=== PATIENT | female | born 1935 | race Caucasian/White ===

== ENCOUNTER 2016-12-23 06:15 | Inpatient (IN) | payer MEDICARE, OTHER ==
--- NOTE | 2016-12-20 16:51 | HP ---
HISTORY OF PRESENT ILLNESS: This is an 81-year-old female, who recently underwent a right carotid e ndarterectomy for bilateral critical carotid artery stenosis. As mentioned, the patient had no symp toms and was picked up on routine evaluation. She has a history of palpitations with an implanted m onitoring device and has been tried on antiarrhythmics, but could not tolerate these. She has a his tory of hypertension and diabetes mellitus, although currently her diabetes is controlled with diet alone after weight loss. She has chronic renal insufficiency, gastroesophageal reflux, dyslipidemia , diabetes mellitus, diverticulosis and hypertension. PAST SURGICAL HISTORY: Includes the previously noted right carotid endarterectomy this year. She h as also had a [employer] implant in 2013, bilateral cataracts, cholecystectomy, hysterectomy, FAMILY HISTORY: Parents are . SOCIAL HISTORY: The patient is a nonsmoker. She does not exercise regularly, but does stands on nights. She has a significant other who she is known since she was a teenager. REVIEW OF SYSTEMS: Significant only for some fluid accumulation in her lower extremities. MEDICATIONS: Include pravastatin 40, amlodipine 10, aspirin 325, losartan 50, Prilosec 20, Dyazide 37.5/25 daily, metoprolol ER 25 daily, vitamin D supplements. ALLERGIES: SULFA. PLAN: Plan at this time is for elective left carotid endarterectomy on 12/23/2016.
[2016-12-23] MEDS ORDERED: Protamine Sulfate 50 MG/5 ML VIAL ONE (06:28)
[2016-12-23] MEDS ORDERED: Heparin 5,000 UNITS/ML VIAL ONE (06:28)
[2016-12-23] MEDS ORDERED: Fentanyl 100 MCG/2 ML VIAL ONE ×2 (06:46→09:55)
[2016-12-23] MEDS ORDERED: Midazolam HCl 2 mg/2 ml Vial ONE (06:46)
[2016-12-23 07:03] LABS: Hematocrit 38.5 % (36.0-47.0); Mean Platelet Volume 7.6 fL (7.4-10.4); Red Blood Cell (RBC) Count 3.77 mill/uL (4.20-5.40); White Blood Cell (WBC) Count 6.8 thou/uL (4.8-10.8)
[2016-12-23] MEDS ORDERED: Lidocaine 2% PF 10 ML AMP (For Epidural Use) ONE (07:30)
[2016-12-23] MEDS ORDERED: ePHEDrine/0.9% NaCl/PF SYRINGE 50 mg/10 ml ONE (07:30)
[2016-12-23] MEDS ORDERED: Glycopyrrolate 0.2 MG/ML 5 ML SYRINGE ONE (07:30)
[2016-12-23] MEDS ORDERED: Propofol 200 MG/20 ML VIAL ONE (07:30)
[2016-12-23] MEDS ORDERED: Ondansetron HCl/PF 4 MG/2 ML Vial ONE (07:30)
[2016-12-23 07:39] LABS: Anion Gap 15 mmol/L (10-20); BUN (Urea Nitrogen) 31 mg/dL (9.8-20.1); Calc. Creatinine Clearance 24 mL/min (70-130); Calcium 9.8 mg/dL (7.8-10.44); Carbon Dioxide 24 mmol/L (23-31); Chloride 102 mmol/L (98-107); Estimated GFR-MDRD 25
[2016-12-23] MEDS ORDERED: Promethazine HCl 25 MG/ML VIAL IM PRN (08:05)
[2016-12-23] MEDS ORDERED: Ondansetron HCl/PF 4 MG/2 ML Vial IVP PRN ×2 (08:05→12:17)
[2016-12-23] MEDS ORDERED: Promethazine HCl 25 MG/ML VIAL SLOW IVP PRN (08:05)
--- NOTE | 2016-12-23 09:25 | OP ---
POSTOPERATIVE DIAGNOSIS: Left carotid stenosis. PROCEDURE: Left carotid endarterectomy. DESCRIPTION OF THE PROCEDURE: After adequate anesthesia had been obtained, a right common femoral a rterial 5 Lao catheter was placed without difficulty. She was then prepped and draped after ultr asound had been used on the neck. Incision was made and carried down exposing the common internal a nd external carotid arteries. Vagus nerve was identified and avoided. Hypoglossal nerve was not vi sualized. After 7500 units of heparin, clamps were applied, arteriotomy performed, and a 12-Lao shunt was placed. Endarterectomy was then performed with satisfactory tapering distally. Area was thoroughly irrigated and a bovine patch was used to close the arteriotomy. Back flushing and forwar d flushing the vessels after shunt removal and then irrigating again with heparin saline. Flow was then restored up the external and then internal carotid artery. Suture was then secured, following which, protamine was given to partially reverse the heparin and after obtaining good hemostasis, the wound was irrigated and closed in layers.
[2016-12-23 11:31] VITALS: BMI 25.3
[2016-12-23] MEDS ORDERED: Fentanyl 100 MCG/2 ML VIAL SLOW IVP PRN ×2 (12:17)
[2016-12-23] MEDS ORDERED: Nitroglycerin 50 MG/250 ML BOT 250 ML IVPB PRN (12:17)
[2016-12-23] MEDS ORDERED: DOPamine 400 MG/D5W 250 ML 250 ML IVPB PRN (12:17)
[2016-12-23] MEDS ORDERED: Insulin Regular 300 UNITS/3 ML VIAL SC PRN (12:17)
[2016-12-23] MEDS ORDERED: Acetaminophen 325 MG TAB PO PRN (12:17)
[2016-12-23] MEDS ORDERED: HYDROcodone/Acetaminophen 5/325 mg Tablet PO PRN (12:17)
[2016-12-23] MEDS: Sodium Chloride 0.9% 1,000 ML IV SCH (12:30)
[2016-12-23] MEDS: HYDROcodone/Acetaminophen 5/325 mg Tablet PO PRN ×2 (12:43→18:22)
[2016-12-23] MEDS ORDERED: Pravastatin Sodium 40 MG TAB PO SCH (21:00)
[2016-12-24] MEDS: HYDROcodone/Acetaminophen 5/325 mg Tablet PO PRN ×2 (01:32→09:40)
[2016-12-24 07:32] VITALS: TEMP 98
[2016-12-24] MEDS: Sodium Chloride 0.9% 1,000 ML IV SCH (08:24)
[2016-12-24 08:30] VITALS: BP 98/43
[2016-12-24] MEDS ORDERED: Losartan Potassium 25 MG TAB PO SCH (09:00)
--- NOTE | 2016-12-24 12:06 | DIS ---
HOSPITAL COURSE: The patient was admitted on 12/23/2016, where she underwent left carotid endartere ctomy. Her postoperative course was notable only for blood pressure about 100. Neurologic exam was normal. She will be discharged home with instructions to stop her amlodipine as well as her diuretic. Her admission creatinine was about 2 and for this reason, I will stop her di uretic. We will follow up in 2 to 3 weeks.
== END 2016-12-24 10:35 | disposition home or self-care (01) | DRG 27 ==
LOC: SURG A 06:15 → CCU 11:25
PROVIDERS: ADMIT Thoracic Surgery (Cardiothoracic Vascular Surgery); ATTEND Thoracic Surgery (Cardiothoracic Vascular Surgery)
PROC: 03CJ3ZZ Extirpation of Matter from Left Common Carotid Artery, Percutaneous Approach (ICD-10-PCS; principal; 2016-12-24)
PROC: 03U Upper Arteries, Supplement (ICD-10-PCS; 2016-12-24)
DX: I65.22 Occlusion and stenosis of left carotid artery (principal); E11.9 Type 2 diabetes mellitus without complications; I12.9 Hypertensive chronic kidney disease with stage 1 through stage 4 chronic kidney disease, or unspecified chronic kidney disease; E78.5 Hyperlipidemia, unspecified; K21.9 Gastro-esophageal reflux disease without esophagitis; K57.90 Diverticulosis of intestine, part unspecified, without perforation or abscess without bleeding; N18.9 Chronic kidney disease, unspecified; Z88.2 Allergy status to sulfonamides; Z88.8 Allergy status to other drugs, medicaments and biological substances
CPT/HCPCS: 36415; 36416; 80048; 85027; 96374; J1642; J1644; J2001; J2250; J2405; J2704; J2720; J3010

== ENCOUNTER 2017-03-09 10:32 | Emergency (ER) | payer MEDICARE, OTHER ==
[2017-03-09] MEDS ORDERED: Metoclopramide HCl 10 MG/2 ML VIAL ONE (11:17)
[2017-03-09] MEDS ORDERED: diphenhydrAMINE 50 MG/ML VIAL ONE (11:17)
== END 2017-03-09 12:02 | disposition home or self-care (01) ==
LOC: ERS 10:32
DX: B02.9 Zoster without complications (principal); E78.5 Hyperlipidemia, unspecified; I10 Essential (primary) hypertension; E11.9 Type 2 diabetes mellitus without complications
CPT/HCPCS: 96374; 96375; J1200; J2765

== ENCOUNTER 2017-04-26 13:00 | Outpatient (CLI) | payer MEDICARE, OTHER ==
--- NOTE | 2017-04-26 21:05 | EKG ---
Test Reason : Blood Pressure : / mmHG Vent. Rate : 073 BPM Atrial Rate : 073 BPM P-R Int : 150 ms QRS Dur : 088 ms QT Int : 388 ms P-R-T Axes : 075 -37 -08 degrees QTc Int : 427 ms Normal sinus rhythm Left axis deviation Nonspecific ST abnormality Abnormal ECG When compared with ECG of 30-OCT-2016 17:03, Premature atrial complexes are no longer Present T wave inversion now evident in Inferior leads Confirmed by MALIK MOORE ([id number]) on 04/26/2017 9:04:55 PM Referred By: DAVIS Confirmed By:MALIK MOORE
== END 2017-04-26 13:01 | disposition home or self-care (01) ==
LOC: LABBT 13:00
PROVIDERS: ATTEND Internal Medicine Cardiovascular Disease
DX: Z01.818 Encounter for other preprocedural examination (principal); R55 Syncope and collapse
CPT/HCPCS: 93005; 93010

== ENCOUNTER 2017-04-28 10:19 | Day surgery (SDC) | payer MEDICARE, OTHER ==
[2017-04-26 13:28] VITALS: BMI 24.3
[2017-04-28] MEDS ORDERED: Sodium Chloride 0.9% 10 ML ONE (10:25)
[2017-04-28] MEDS ORDERED: Lidocaine 1% w/Epinephrine 1:200K 30 ML VIAL ONE (12:33)
--- NOTE | 2017-04-28 14:24 | OP ---
DATE OF PROCEDURE: 04/28/2017 LOOP RECORDER EXPLANTATION REPORT HISTORY: Ms. Wilkes had a loop recorder implanted originally for presyncope, but had no recurrence. She had some asymptomatic atrial tachycardia only. Her device is at end of service and she wishes to be removed. DESCRIPTION OF PROCEDURE: The patient received local analgesia with subcutaneous lidocaine at the de vice insertion site after adequate prepping and draping. The incision was made over the previous sca r and the device was extracted. The wound was closed with Dermabond. CONCLUSION: Successful loop recorder explantation.
== END 2017-04-28 13:50 | disposition home or self-care (01) ==
LOC: CCL 10:19
PROVIDERS: ATTEND Internal Medicine Cardiovascular Disease
PROC: 0JPT32Z Removal of Monitoring Device from Trunk Subcutaneous Tissue and Fascia, Percutaneous Approach (ICD-10-PCS; principal; 2017-04-28)
DX: Z45.89 Encounter for adjustment and management of other implanted devices (principal); R00.0 Tachycardia, unspecified; E11.22 Type 2 diabetes mellitus with diabetic chronic kidney disease; I12.9 Hypertensive chronic kidney disease with stage 1 through stage 4 chronic kidney disease, or unspecified chronic kidney disease; N18.9 Chronic kidney disease, unspecified; K21.9 Gastro-esophageal reflux disease without esophagitis; E78.5 Hyperlipidemia, unspecified; Z79.82 Long term (current) use of aspirin; Z79.899 Other long term (current) drug therapy; Z88.2 Allergy status to sulfonamides; Z88.8 Allergy status to other drugs, medicaments and biological substances; Z95.818 Presence of other cardiac implants and grafts; Z90.49 Acquired absence of other specified parts of digestive tract; Z90.710 Acquired absence of both cervix and uterus; Z98.41 Cataract extraction status, right eye; Z98.42 Cataract extraction status, left eye; Z98.890 Other specified postprocedural states
CPT/HCPCS: 33284; A4216

== ENCOUNTER 2018-10-17 23:24 | Emergency (ER) | payer MEDICARE, OTHER ==
[2018-10-18 00:14] LABS: #Basophils 0.1 thou/uL (0.0-0.2); #Eosinphils 0.4 thou/uL (0.0-0.7); #Lymphocytes 3.3 thou/uL (1.20-3.40); #Neutrophils 3.2 thou/uL (1.40-6.50); %Eosinophils 5.3 % (0.0-10.0); %Lymphocytes 41.1 % (21.0-51.0); %Monocytes 12.5 % (0.0-10.0); %Neutrophils 40.1 % (42.0-75.0); Hemoglobin 12.3 g/dL (12.0-16.0); Mean Corpuscular HGB CONC 33.4 g/dL (32.0-36.0); Mean Corpuscular Hemoglobin 33.5 pg (27.0-31.0); Mean Platelet Volume 7.4 fL (7.4-10.4); Platelet Count 235 thou/uL (130-400); RBC Distribution Width 12.3 % (11.5-14.5); Red Blood Cell (RBC) Count 3.67 mill/uL (4.20-5.40)
[2018-10-18 00:19] LABS: Bilirubin Negative (Negative); Blood, Urine Negative (Negative); Clarity Clear (Clear); Glucose, Urine (Dipstick) Normal (Negative); Leukocyte Negative Leu/uL (Negative); Nitrite Negative (Negative); Protein, Urine (Dipstick) Negative (Neg-Trace); Urobilinogen Normal mg/dL (Less than 2)
[2018-10-18 00:35] LABS: ALT (SGPT) 7 U/L (8-55); AST (SGOT) 15 U/L (5-34); Albumin 3.9 g/dL (3.4-4.8); Alkaline Phosphatase 98 U/L (40-150); Anion Gap 13 mmol/L (10-20); BUN (Urea Nitrogen) 16 mg/dL (9.8-20.1); Bilirubin, Total 0.6 mg/dL (0.2-1.2); Calc. Creatinine Clearance 0 mL/min (70-130); Calcium 9.4 mg/dL (7.8-10.44); Carbon Dioxide 25 mmol/L (23-31); Chloride 105 mmol/L (98-107); Estimated GFR-MDRD 39; Globulin 3.3 g/dL (2.4-3.5); Glucose 119 mg/dL (83-110); Protein, Total 7.2 g/dL (6.0-8.3); Sodium 139 mmol/L (136-145)
[2018-10-18] MEDS ORDERED: Acetaminophen 500 MG TAB ONE ×2 (01:20→01:23)
--- NOTE | 2018-10-18 09:08 | CT ---
PRELIMINARY REPORT/[facility]/EMERGENCY AFTER HOURS PROCEDURE: EXAM: CT Abdomen and Pelvis With Contrast EXAM DATE/TIME: 10/18/2018 1:01 AM CLINICAL HISTORY: 83 years old, female; Abdominal pain; Localized; Left; Prior surgery; Patient HX: Er 6. 83f patient r tereso she was sitting at home and had sudden onset l-sided flank pain that she described feeling lik e someone was hitting her. She denies any dysuria or hematuria or h/o renal stones. Surgical history of cholecystectomy, surgical history of hysterectomy TECHNIQUE: Imaging protocol: Axial computed tomography images of the abdomen and pelvis with intravenous contras t. COMPARISON: No relevant prior studies available. FINDINGS: Lungs: Minimal bibasilar atelectasis and/or scarring. Liver: Normal. Gallbladder and bile ducts: Gallbladder is surgically absent. Pancreas: Normal. Spleen: Normal. Adrenals: Normal. Kidneys and ureters: Mild left renal atrophy. Stomach and bowel: Colonic diverticulosis. Appendix: No evidence of appendicitis. Intraperitoneal space: Normal. No free air. No significant fluid collection. Vasculature: Atherosclerotic disease of visualized distal thoracic aorta. Lymph nodes: Normal. No enlarged lymph nodes. Bladder: Unremarkable as visualized. Reproductive: Uterus is surgically absent. Bones/joints: Degenerative changes of the hips and sacroiliac joints. Multilevel thoracolumbar spine degenerative changes. Soft tissues: Normal. IMPRESSION: No acute abdominal or pelvic abnormality. Thank you for allowing us to participate in the care of your patient. Dictated and Authenticated by: Dusty Anderson MD 10/18/2018 1:52 AM Central Time ([place] & [place]) FINAL REPORT ABDOMEN CT WITH CONTRAST PELVIC CT WITH CONTRAST: Date: 10/18/18 HISTORY: Sudden onset left flank pain. FINDINGS: ABDOMEN CT: Lung bases are clear. Normal heart size. Appropriate enhancement of the solid organs. Mild atrophy of the left kidney. Bilaterally, no obstructive uropathy. Minimal nonspecific left perinephric fat stra nding. Surgically absent gallbladder. Limited evaluation of the alimentary canal by technique. No bowel obstruction. Ileocecal junction is unremarkable. Diverticulosis. No diverticulitis. Appendix is not appreciated. Nevertheless, no inflam mation of the cecal apex. CT PELVIS: No mass, lymphadenopathy, free air, or free fluid. Surgically absent uterus. IMPRESSION: This report is in agreement with the preliminary report by [facility]. No acute abnormality in the abdomen or pelvis. POS: OFF
== END 2018-10-18 02:23 | disposition home or self-care (01) ==
LOC: ERS 23:24
DX: R10.9 Unspecified abdominal pain (principal); E78.5 Hyperlipidemia, unspecified; E11.9 Type 2 diabetes mellitus without complications; I10 Essential (primary) hypertension; F41.9 Anxiety disorder, unspecified; Z79.899 Other long term (current) drug therapy; Z79.82 Long term (current) use of aspirin
CPT/HCPCS: 36415; 74177; 80053; 81003; 85025

== ENCOUNTER 2021-07-10 14:25 | Inpatient (IN) | payer MEDICARE, OTHER ==
[~2021-07-10 14:25] MED LIST: Iopamidol-370 76% 500 ML 1 ML ONE
[2021-07-10 15:10] LABS: #Lymphocytes 2.3 thou/uL (1.20-3.40); #Monocytes 1.3 thou/uL (0.11-0.59); #Neutrophils 7.8 thou/uL (1.40-6.50); %Basophils 0.2 % (0.0-1.0); %Lymphocytes 20.1 % (21.0-51.0); %Monocytes 11.4 % (0.0-10.0); %Neutrophils 68.3 % (42.0-75.0); Hemoglobin 12.6 g/dL (12.0-16.0); Mean Corpuscular HGB CONC 33.1 g/dL (32.0-36.0); Mean Corpuscular Hemoglobin 34.6 pg (27.0-31.0); Mean Platelet Volume 6.9 fL (7.4-10.4); Platelet Count 240 thou/uL (130-400); RBC Distribution Width 12.2 % (11.5-14.5); Red Blood Cell (RBC) Count 3.63 mill/uL (4.20-5.40); White Blood Cell (WBC) Count 11.4 thou/uL (4.8-10.8)
[2021-07-10 15:32] LABS: ALT (SGPT) 26 U/L (8-55); AST (SGOT) 39 U/L (5-34); Albumin 4.1 g/dL (3.4-4.8); Alkaline Phosphatase 99 U/L (40-110); Anion Gap 16 mmol/L (10-20); BUN (Urea Nitrogen) 21 mg/dL (9.8-20.1); Bilirubin, Total 0.5 mg/dL (0.2-1.2); Calc. Creatinine Clearance 0 mL/min (70-130); Calcium 9.2 mg/dL (7.8-10.44); Carbon Dioxide 24 mmol/L (23-31); Chloride 96 mmol/L (98-107); Globulin 3.6 g/dL (2.4-3.5); Glucose 111 mg/dL (83-110); Magnesium 1.9 mg/dL (1.6-2.6); Potassium 4.3 mmol/L (3.5-5.1); Protein, Total 7.7 g/dL (5.8-8.1); Sodium 132 mmol/L (136-145)
[2021-07-10] MEDS ORDERED: Azithromycin 500 MG VIAL ONE (15:44)
[2021-07-10] MEDS ORDERED: methylPREDNISolone Sod Succ/PF 125 MG/2 ML VIAL ONE (15:44)
[2021-07-10] MEDS ORDERED: Acetaminophen 500 MG TAB ONE (15:44)
[2021-07-10] MEDS ORDERED: cefTRIAXone\\ROCEPHIN 2 GM VIAL ONE (15:44)
[2021-07-10 16:56] LABS: Bilirubin Negative (Negative); Blood, Urine Negative (Negative); Clarity Clear (Clear); Glucose, Urine (Dipstick) Normal (Negative); Ketone, Urine 40 mg/dL (Negative); Leukocyte Negative Leu/uL (Negative); Nitrite Negative (Negative); Protein, Urine (Dipstick) 10 mg/dL (Neg-Trace); Specific Gravity, Urine 1.015 (1.002-1.036); Urobilinogen Normal mg/dL (Less than 2); pH, Urine 5.5 (5.0-9.0)
[2021-07-10] MEDS ORDERED: HumaLOG 300 UNITS/3 ML VIAL SC PRN (17:14)
[2021-07-10] MEDS ORDERED: Dextrose 50% Abboject 50 ML SYRINGE SLOW IVP PRN (17:14)
[2021-07-10] MEDS ORDERED: Dextrose 5% in Water 1,000 ML IV PRN (17:14)
[2021-07-10] MEDS ORDERED: Ondansetron ODT 4 MG TAB PO PRN (17:16)
[2021-07-10] MEDS ORDERED: Ondansetron PF 4 MG/2 ML Vial IVP PRN (17:16)
[2021-07-10] MEDS ORDERED: Acetaminophen 325 MG TAB PO PRN (17:16)
[2021-07-10] MEDS ORDERED: Senokot S 8.6-50 MG TAB PO PRN (17:16)
[2021-07-10] MEDS ORDERED: Albuterol Sulfate 2.5 mg/3 ml Neb NEB PRN (17:20)
[2021-07-10 17:32] LABS: SARS-CoV-2 NAA Rapid Test Not Detected (NotDetected)
[2021-07-10] MEDS ORDERED: Oseltamivir 75 MG CAP PO SCH (18:00)
[2021-07-10 19:50] VITALS: BMI 24.1
[2021-07-10 20:05] LABS: Troponin I 0.014 ng/mL (< 0.028)
[2021-07-10] MEDS: Sodium Chloride 0.9% 1,000 ML IV SCH (20:16)
[2021-07-10] MEDS: guaiFENesin ER 600 MG TAB PO SCH (20:44)
[2021-07-10] MEDS: Atorvastatin Calcium 10 MG TAB PO SCH (20:44)
[2021-07-10] MEDS ORDERED: methylPREDNISolone Sod Succ 40 MG VIAL IVP SCH (21:00)
[2021-07-10 22:45] LABS: Legionella Urinary Ag Negative (Negative); Strep pneumo Urine Ag NEGATIVE (NEGATIVE)
[2021-07-10 23:44] LABS: Troponin I Less than 0.010 ng/mL (< 0.028)
[2021-07-11] MEDS: Benzonatate 100 MG CAP PO PRN ×2 (01:54→20:54)
[2021-07-11 04:37] LABS: #Lymphocytes 1.3 thou/uL (1.20-3.40); #Monocytes 0.3 thou/uL (0.11-0.59); %Basophils 0.2 % (0.0-1.0); %Eosinophils 0.1 % (0.0-10.0); %Lymphocytes 15.2 % (21.0-51.0); %Monocytes 3.7 % (0.0-10.0); %Neutrophils 80.8 % (42.0-75.0); Hemoglobin 10.8 g/dL (12.0-16.0); Mean Corpuscular HGB CONC 32.6 g/dL (32.0-36.0); Mean Corpuscular Hemoglobin 33.9 pg (27.0-31.0); Platelet Count 228 thou/uL (130-400); RBC Distribution Width 12.3 % (11.5-14.5); Red Blood Cell (RBC) Count 3.17 mill/uL (4.20-5.40); White Blood Cell (WBC) Count 8.6 thou/uL (4.8-10.8)
[2021-07-11 05:23] LABS: Chloride 104 mmol/L (98-107); Potassium 3.8 mmol/L (3.5-5.1); Sodium 136 mmol/L (136-145)
[2021-07-11 05:24] LABS: Calcium 8.1 mg/dL (7.8-10.44); Glucose 183 mg/dL (83-110)
[2021-07-11 05:26] LABS: Anion Gap 16 mmol/L (10-20); Carbon Dioxide 20 mmol/L (23-31)
[2021-07-11 05:27] LABS: Calc. Creatinine Clearance 49 mL/min (70-130)
[2021-07-11 05:28] LABS: BUN (Urea Nitrogen) 14 mg/dL (9.8-20.1)
[2021-07-11] MEDS ORDERED: Electrolyte Replacement Protocol 1 EACH FS PRN (05:45)
[2021-07-11 06:04] LABS: Magnesium 1.6 mg/dL (1.6-2.6)
[2021-07-11] MEDS: HumaLOG 300 UNITS/3 ML VIAL SC PRN (06:15)
[2021-07-11] MEDS ORDERED: Magnesium 2 GM/50 ML(in water) 2 GM in Premix Bag 1 BAG IVPB SCH (06:15)
[2021-07-11] MEDS ORDERED: methylPREDNISolone Sod Succ 40 MG VIAL IVP SCH (09:00)
[2021-07-11] MEDS: Aspirin Chewable 81 MG TAB PO SCH (09:11)
[2021-07-11] MEDS: methylPREDNISolone Sod Succ 40 MG VIAL IVP SCH ×2 (09:11→20:55)
[2021-07-11] MEDS: guaiFENesin ER 600 MG TAB PO SCH ×2 (09:11→20:55)
[2021-07-11] MEDS: Cholecalciferol 1,000 UNITS (25 MCG) TAB PO SCH (09:12)
[2021-07-11] MEDS: Loratadine 10 MG TAB PO SCH (09:12)
[2021-07-11] MEDS: Enoxaparin Sodium 40 MG/0.4 ML SYRINGE SC SCH (09:12)
[2021-07-11] MEDS: Sodium Chloride 0.9% 1,000 ML IV SCH (09:24)
[2021-07-11] MEDS ORDERED: Electrolyte Replacement Protocol FS PRN (13:30)
[2021-07-11] MEDS: Azithromycin 500 MG in Sodium Chloride 0.9% 250 ML 250 ML IVPB SCH (14:54)
[2021-07-11] MEDS: cefTRIAXone\\ROCEPHIN 1 GM in Sodium Chloride 0.9% 100 ML IVPB SCH (16:10)
[2021-07-11] MEDS: Atorvastatin Calcium 10 MG TAB PO SCH (20:55)
[2021-07-12 04:59] LABS: Anion Gap 15 mmol/L (10-20); BUN (Urea Nitrogen) 17 mg/dL (9.8-20.1); Calc. Creatinine Clearance 44 mL/min (70-130); Calcium 9.2 mg/dL (7.8-10.44); Carbon Dioxide 27 mmol/L (23-31); Chloride 102 mmol/L (98-107); Glucose 167 mg/dL (83-110); Potassium 4.3 mmol/L (3.5-5.1); Sodium 140 mmol/L (136-145)
[2021-07-12] MEDS: HumaLOG 300 UNITS/3 ML VIAL SC PRN (05:55)
[2021-07-12 06:30] LABS: #Lymphocytes 1.4 thou/uL (1.20-3.40); #Monocytes 0.5 thou/uL (0.11-0.59); #Neutrophils 11.3 thou/uL (1.40-6.50); %Lymphocytes 10.3 % (21.0-51.0); %Monocytes 3.7 % (0.0-10.0); %Neutrophils 85.9 % (42.0-75.0); Hemoglobin 12.4 g/dL (12.0-16.0); MDiff Complete? YES; Macrocytosis SLIGHT = 6-15 cells (100X) (0-5/hpf); Mean Corpuscular HGB CONC 32.9 g/dL (32.0-36.0); Mean Corpuscular Hemoglobin 34.8 pg (27.0-31.0); Mean Platelet Volume 7.1 fL (7.4-10.4); Platelet Count 266 thou/uL (130-400); RBC Distribution Width 12.4 % (11.5-14.5); Red Blood Cell (RBC) Count 3.56 mill/uL (4.20-5.40); White Blood Cell (WBC) Count 13.1 thou/uL (4.8-10.8)
[2021-07-12] MEDS ORDERED: Cholecalciferol 1,000 UNITS (25 MCG) TAB PO SCH (09:00)
[2021-07-12] MEDS: Amlodipine 5 MG TAB PO SCH (10:02)
[2021-07-12] MEDS: Aspirin Chewable 81 MG TAB PO SCH (10:03)
[2021-07-12] MEDS: Cholecalciferol 1,000 UNITS (25 MCG) TAB PO SCH (10:03)
[2021-07-12] MEDS: Enoxaparin Sodium 40 MG/0.4 ML SYRINGE SC SCH (10:03)
[2021-07-12] MEDS: Loratadine 10 MG TAB PO SCH (10:04)
[2021-07-12] MEDS: guaiFENesin ER 600 MG TAB PO SCH ×2 (10:04→21:40)
[2021-07-12] MEDS: methylPREDNISolone Sod Succ 40 MG VIAL IVP SCH ×2 (10:22→21:39)
[2021-07-12] MEDS ORDERED: hydrALAZINE 20 MG/ML VIAL SLOW IVP PRN (11:11)
[2021-07-12] MEDS ORDERED: Lisinopril 5 MG TAB PO SCH (13:00)
[2021-07-12] MEDS: Azithromycin 500 MG in Sodium Chloride 0.9% 250 ML 250 ML IVPB SCH (15:58)
[2021-07-12] MEDS: cefTRIAXone\\ROCEPHIN 1 GM in Sodium Chloride 0.9% 100 ML IVPB SCH (17:11)
[2021-07-12] MEDS: Atorvastatin Calcium 10 MG TAB PO SCH (21:40)
[2021-07-13 04:17] LABS: #Basophils 0.1 thou/uL (0.0-0.2); #Lymphocytes 1.3 thou/uL (1.20-3.40); #Monocytes 0.4 thou/uL (0.11-0.59); #Neutrophils 7.9 thou/uL (1.40-6.50); %Eosinophils 0.1 % (0.0-10.0); %Lymphocytes 13.8 % (21.0-51.0); %Neutrophils 81.1 % (42.0-75.0); Hemoglobin 12.2 g/dL (12.0-16.0); Mean Corpuscular HGB CONC 32.6 g/dL (32.0-36.0); Mean Corpuscular Hemoglobin 34.4 pg (27.0-31.0); Mean Platelet Volume 6.9 fL (7.4-10.4); Platelet Count 269 thou/uL (130-400); RBC Distribution Width 12.2 % (11.5-14.5); Red Blood Cell (RBC) Count 3.56 mill/uL (4.20-5.40); White Blood Cell (WBC) Count 9.8 thou/uL (4.8-10.8)
[2021-07-13 04:33] LABS: Phosphorus 2.8 mg/dL (2.3-4.7)
[2021-07-13 04:39] LABS: Anion Gap 15 mmol/L (10-20); BUN (Urea Nitrogen) 22 mg/dL (9.8-20.1); Calc. Creatinine Clearance 43 mL/min (70-130); Calcium 8.9 mg/dL (7.8-10.44); Carbon Dioxide 26 mmol/L (23-31); Chloride 100 mmol/L (98-107); Glucose 176 mg/dL (83-110); Magnesium 2.1 mg/dL (1.6-2.6); Potassium 4.7 mmol/L (3.5-5.1); Sodium 136 mmol/L (136-145)
[2021-07-13] MEDS: HumaLOG 300 UNITS/3 ML VIAL SC PRN ×2 (07:42→18:27)
[2021-07-13] MEDS ORDERED: Oseltamivir 75 MG CAP PO SCH (09:00)
[2021-07-13] MEDS: Folic Acid 1 MG TAB PO SCH (09:59)
[2021-07-13] MEDS: Cholecalciferol 1,000 UNITS (25 MCG) TAB PO SCH (09:59)
[2021-07-13] MEDS: Loratadine 10 MG TAB PO SCH (09:59)
[2021-07-13] MEDS: Lisinopril 10 MG TAB PO SCH (10:00)
[2021-07-13] MEDS: Amlodipine 5 MG TAB PO SCH (10:00)
[2021-07-13] MEDS: Aspirin Chewable 81 MG TAB PO SCH (10:00)
[2021-07-13] MEDS: guaiFENesin ER 600 MG TAB PO SCH ×2 (10:00→20:42)
[2021-07-13] MEDS: Cyanocobalamin (Vitamin B-12) 1,000 MCG TAB PO SCH (10:02)
[2021-07-13] MEDS: methylPREDNISolone Sod Succ 40 MG VIAL IVP SCH ×2 (10:02→20:42)
[2021-07-13] MEDS: Enoxaparin Sodium 40 MG/0.4 ML SYRINGE SC SCH (10:12)
[2021-07-13] MEDS: Azithromycin 500 MG in Sodium Chloride 0.9% 250 ML 250 ML IVPB SCH (16:28)
[2021-07-13] MEDS: cefTRIAXone\\ROCEPHIN 1 GM in Sodium Chloride 0.9% 100 ML IVPB SCH (17:49)
[2021-07-13] MEDS: Atorvastatin Calcium 10 MG TAB PO SCH (20:42)
[2021-07-13] MEDS: Oseltamivir 6 MG/ML ORAL SUSP PO SCH (21:01)
[2021-07-14] MEDS ORDERED: predniSONE 20 MG TAB PO SCH (08:00)
[2021-07-14] MEDS ORDERED: Cefdinir 300 MG CAP PO SCH (09:00)
[2021-07-14] MEDS: Enoxaparin Sodium 40 MG/0.4 ML SYRINGE SC SCH (09:16)
[2021-07-14] MEDS: Folic Acid 1 MG TAB PO SCH (09:17)
[2021-07-14] MEDS: Aspirin Chewable 81 MG TAB PO SCH (09:17)
[2021-07-14] MEDS: methylPREDNISolone Sod Succ 40 MG VIAL IVP SCH (09:17)
[2021-07-14] MEDS: guaiFENesin ER 600 MG TAB PO SCH (09:17)
[2021-07-14] MEDS: Cholecalciferol 1,000 UNITS (25 MCG) TAB PO SCH (09:17)
[2021-07-14] MEDS: Oseltamivir 6 MG/ML ORAL SUSP PO SCH (09:18)
[2021-07-14] MEDS: Cyanocobalamin (Vitamin B-12) 1,000 MCG TAB PO SCH (09:18)
[2021-07-14] MEDS: Lisinopril 10 MG TAB PO SCH (09:18)
[2021-07-14 12:13] VITALS: BP 137/69; TEMP 98
== END 2021-07-14 14:00 | DRG 871 ==
LOC: ERS 14:25 → 2NO 16:00
PROVIDERS: ADMIT Internal Medicine; ATTEND Internal Medicine
DX: A41.89 Other specified sepsis (principal); Z20.822 Contact with and (suspected) exposure to COVID-19; J10.00 Influenza due to other identified influenza virus with unspecified type of pneumonia; J96.01 Acute respiratory failure with hypoxia; E87.1 Hypo-osmolality and hyponatremia; N17.9 Acute kidney failure, unspecified; I47.1 Supraventricular tachycardia; I47.2 Ventricular tachycardia; R65.20 Severe sepsis without septic shock; J10.1 Influenza due to other identified influenza virus with other respiratory manifestations; J20.8 Acute bronchitis due to other specified organisms; I12.9 Hypertensive chronic kidney disease with stage 1 through stage 4 chronic kidney disease, or unspecified chronic kidney disease; N18.30 Chronic kidney disease, stage 3 unspecified; D75.89 Other specified diseases of blood and blood-forming organs; E11.22 Type 2 diabetes mellitus with diabetic chronic kidney disease; E78.5 Hyperlipidemia, unspecified; E86.0 Dehydration; E11.51 Type 2 diabetes mellitus with diabetic peripheral angiopathy without gangrene; H91.93 Unspecified hearing loss, bilateral; H35.30 Unspecified macular degeneration; R79.89 Other specified abnormal findings of blood chemistry; I25.10 Atherosclerotic heart disease of native coronary artery without angina pectoris; E83.42 Hypomagnesemia; Z88.2 Allergy status to sulfonamides; Z88.8 Allergy status to other drugs, medicaments and biological substances; Z97.4 Presence of external hearing-aid; Z79.899 Other long term (current) drug therapy; Z79.84 Long term (current) use of oral hypoglycemic drugs; Z79.82 Long term (current) use of aspirin; Z90.710 Acquired absence of both cervix and uterus; Z90.49 Acquired absence of other specified parts of digestive tract; Z90.89 Acquired absence of other organs; Z86.73 Personal history of transient ischemic attack (TIA), and cerebral infarction without residual deficits; Z98.42 Cataract extraction status, left eye; Z98.41 Cataract extraction status, right eye
CPT/HCPCS: 36415; 36416; 71045; 71275; 80048; 80053; 81003; 83605; 83735; 83880; 84100; 84484; 85025; 85379; 87040; 87086; 87449; 87899; 93005; 93010; 94640; 96365; 96375; J0456; J0696; J1650; J1815; J2920; J2930; J3475; J3490; J7050; J7512; J7620; Q9967

== ENCOUNTER 2021-10-20 00:26 | Emergency (ER) | payer MEDICARE, OTHER ==
[2021-10-20] MEDS ORDERED: Labetalol HCl 100 MG/20 ML VIAL ONE (00:43)
[2021-10-20 01:05] LABS: Mean Corpuscular HGB CONC 32.7 g/dL (32.0-36.0); Mean Corpuscular Hemoglobin 34.6 pg (27.0-31.0); Mean Platelet Volume 7.8 fL (7.4-10.4); Platelet Count 229 thou/uL (130-400); RBC Distribution Width 12.9 % (11.5-14.5); Red Blood Cell (RBC) Count 3.47 mill/uL (4.20-5.40)
[2021-10-20 01:11] LABS: ALT (SGPT) 10 U/L (8-55); AST (SGOT) 17 U/L (5-34); Albumin 3.9 g/dL (3.4-4.8); Alkaline Phosphatase 73 U/L (40-110); Anion Gap 12 mmol/L (10-20); BUN (Urea Nitrogen) 20 mg/dL (9.8-20.1); Bilirubin, Total 0.5 mg/dL (0.2-1.2); Calc. Creatinine Clearance 0 mL/min (70-130); Carbon Dioxide 29 mmol/L (23-31); Chloride 102 mmol/L (98-107); Estimated GFR 42; Globulin 3.4 g/dL (2.4-3.5); Glucose 122 mg/dL (83-110); Magnesium 1.8 mg/dL (1.6-2.6); Potassium 4.2 mmol/L (3.5-5.1); Protein, Total 7.3 g/dL (5.8-8.1); Sodium 139 mmol/L (136-145)
[2021-10-20 01:21] LABS: Eosinophils 4 % (0-10); Lymphocytes 48 % (21-51); MDiff Complete? YES; Monocytes 12 % (0-10); Neutrophil 34 % (42-75); Reactive Lymphocytes 1 % (0-10)
[2021-10-20 01:57] LABS: Bilirubin Negative (Negative); Blood, Urine Negative (Negative); Clarity Clear (Clear); Glucose, Urine (Dipstick) Normal (Negative); Ketone, Urine Negative (Negative); Leukocyte Negative Leu/uL (Negative); Nitrite Negative (Negative); Protein, Urine (Dipstick) Negative (Neg-Trace); Specific Gravity, Urine 1.006 (1.002-1.036); Urobilinogen Normal mg/dL (Less than 2); pH, Urine 5.5 (5.0-9.0)
[2021-10-20] MEDS ORDERED: hydrALAZINE 20 MG/ML VIAL ONE (03:05)
== END 2021-10-20 03:28 ==
LOC: ERS 00:26
DX: I16.0 Hypertensive urgency (principal); E78.5 Hyperlipidemia, unspecified; E78.00 Pure hypercholesterolemia, unspecified; E11.9 Type 2 diabetes mellitus without complications; I10 Essential (primary) hypertension
CPT/HCPCS: 70450; 71045; 80053; 81003; 83735; 84484; 85025; 93005; 96374; 96375; J0360

== ENCOUNTER 2021-11-29 09:29 | Outpatient (CLI) | payer MEDICARE, OTHER ==
[2021-11-29] MEDS ORDERED: Iopamidol 370 76% 100 ML VIAL ONE (10:12)
== END 2021-11-29 09:30 | disposition home or self-care (01) ==
LOC: CT 09:29
PROVIDERS: ATTEND Internal Medicine Cardiovascular Disease
DX: I25.10 Atherosclerotic heart disease of native coronary artery without angina pectoris (principal)
CPT/HCPCS: 70498; Q9967

== ENCOUNTER 2022-09-04 22:41 | Observation (INO) | payer MEDICARE, OTHER, MEDICAID ==
[2022-09-04] MEDS ORDERED: Nitroglycerin 2% Ointment 1 INCH/1 GM Packet ONE (22:59)
[2022-09-05 00:22] LABS: #Basophils 0.1 thou/uL (0.0-0.2); #Eosinphils 0.3 thou/uL (0.0-0.7); #Monocytes 1.1 thou/uL (0.11-0.59); #Neutrophils 3.7 thou/uL (1.40-6.50); %Eosinophils 3.4 % (0.0-10.0); %Lymphocytes 37.7 % (21.0-51.0); %Neutrophils 44.7 % (42.0-75.0); Hemoglobin 11.4 g/dL (12.0-16.0); Mean Corpuscular HGB CONC 30.4 g/dL (32.0-36.0); Mean Corpuscular Hemoglobin 31.6 pg (27.0-31.0); Mean Corpuscular Volume 103.9 fl (78.0-98.0); Platelet Count 256 10x3/uL (130-400); RBC Distribution Width 13.6 % (11.5-14.5); Red Blood Cell (RBC) Count 3.61 mill/uL (4.20-5.40); White Blood Cell (WBC) Count 8.3 10x3/uL (4.8-10.8)
[2022-09-05 00:31] LABS: ALT (SGPT) 8 U/L (8-55); AST (SGOT) 14 U/L (5-34); Albumin 3.7 g/dL (3.4-4.8); Alkaline Phosphatase 94 U/L (40-110); Anion Gap 15 mmol/L (10-20); BUN (Urea Nitrogen) 23 mg/dL (9.8-20.1); Bilirubin, Total 0.3 mg/dL (0.2-1.2); Calc. Creatinine Clearance 0 mL/min (70-130); Calcium 9.3 mg/dL (7.8-10.44); Carbon Dioxide 22 mmol/L (23-31); Chloride 105 mmol/L (98-107); Estimated GFR 43; Globulin 3.4 g/dL (2.4-3.5); Glucose 143 mg/dL (83-110); Potassium 4.1 mmol/L (3.5-5.1); Protein, Total 7.1 g/dL (5.8-8.1); Sodium 138 mmol/L (136-145)
[2022-09-05] MEDS ORDERED: hydrALAZINE 20 MG/ML VIAL SLOW IVP SCH (01:00)
[2022-09-05 02:13] LABS: #Basophils 0.1 thou/uL (0.0-0.2); #Eosinphils 0.3 thou/uL (0.0-0.7); #Monocytes 1.1 thou/uL (0.11-0.59); #Neutrophils 4.1 thou/uL (1.40-6.50); %Basophils 0.7 % (0.0-1.0); %Lymphocytes 36.7 % (21.0-51.0); %Monocytes 12.6 % (0.0-10.0); %Neutrophils 46.9 % (42.0-75.0); Hemoglobin 11.9 g/dL (12.0-16.0); Mean Corpuscular HGB CONC 32.1 g/dL (32.0-36.0); Mean Corpuscular Volume 102.8 fl (78.0-98.0); Mean Platelet Volume 9.6 fL (7.4-10.4); Platelet Count 250 10x3/uL (130-400); RBC Distribution Width 13.6 % (11.5-14.5); Red Blood Cell (RBC) Count 3.61 mill/uL (4.20-5.40); White Blood Cell (WBC) Count 8.7 10x3/uL (4.8-10.8)
[2022-09-05 02:39] LABS: Troponin I Less than 0.010 ng/mL (< 0.028)
[2022-09-05 03:46] VITALS: BMI 27.3
[2022-09-05 06:29] LABS: Troponin I Less than 0.010 ng/mL (< 0.028)
[2022-09-05] MEDS ORDERED: Regadenoson 0.4 MG/5 ML SYRINGE ONE (08:07)
[2022-09-05] MEDS ORDERED: NIFEdipine XL 30 MG TAB PO SCH (09:00)
[2022-09-05] MEDS ORDERED: Lisinopril 20 MG TAB PO SCH (09:00)
[2022-09-05] MEDS ORDERED: Metoprolol Tartrate 25 MG TAB PO SCH (09:00)
[2022-09-05] MEDS ORDERED: Senokot S 8.6-50 MG TAB PO SCH (09:00)
[2022-09-05] MEDS ORDERED: Aspirin 81 mg Enteric Coated Tablet PO SCH (09:00)
[2022-09-05 16:09] VITALS: BP 186/81; TEMP 97.9
[2022-09-05] MEDS ORDERED: Iopamidol-370 76% 500 ML MDV (1 ML CHARGE) ONE (17:22)
[2022-09-05] MEDS ORDERED: Atorvastatin Calcium 20 MG TAB PO SCH (21:00)
== END 2022-09-05 17:48 ==
LOC: ERS 22:41 → 2SW 09-05 00:52
PROVIDERS: ADMIT Family Medicine; ATTEND Internal Medicine
DX: R07.9 Chest pain, unspecified (principal); J96.01 Acute respiratory failure with hypoxia; I10 Essential (primary) hypertension; E11.311 Type 2 diabetes mellitus with unspecified diabetic retinopathy with macular edema; I47.1 Supraventricular tachycardia; I65.23 Occlusion and stenosis of bilateral carotid arteries; I49.9 Cardiac arrhythmia, unspecified; I34.0 Nonrheumatic mitral (valve) insufficiency; E11.36 Type 2 diabetes mellitus with diabetic cataract; K21.9 Gastro-esophageal reflux disease without esophagitis; N17.9 Acute kidney failure, unspecified; F41.9 Anxiety disorder, unspecified; E78.5 Hyperlipidemia, unspecified; I25.10 Atherosclerotic heart disease of native coronary artery without angina pectoris; N18.30 Chronic kidney disease, stage 3 unspecified; Z88.8 Allergy status to other drugs, medicaments and biological substances; Z88.2 Allergy status to sulfonamides; Z79.84 Long term (current) use of oral hypoglycemic drugs; Z79.899 Other long term (current) drug therapy; Z79.82 Long term (current) use of aspirin; Z90.89 Acquired absence of other organs
CPT/HCPCS: 71045; 71275; 78452; 80053; 82962; 83880; 84484 ×3; 85025 ×2; 85379; 93005; 93017; A9500; J0360; 36415; 36416; 96372; 96374; G0378; J1650; J2785; Q9967

== ENCOUNTER 2024-01-06 16:55 | Emergency (ER) | payer MEDICARE, OTHER ==
[~2024-01-06 16:55] MED LIST changes: -Iopamidol-370 76% 500 ML 1 ML ONE; +Iopamidol-370 76% 500 ML MDV (1 ML CHARGE) ONE
[2024-01-06 17:37] LABS: #Basophils 0.09 10x3/uL (0.0-0.2); %Lymphocytes 34.4 % (21.0-51.0); %Monocytes 11.2 % (0.0-10.0); %Neutrophils 49.1 % (42.0-75.0); Hematocrit 36.9 % (36.0-47.0); Hemoglobin 11.6 g/dL (12.0-16.0); Mean Corpuscular HGB CONC 31.4 g/dL (32.0-36.0); Mean Corpuscular Volume 105.1 fL (78.0-98.0); Mean Platelet Volume 9.9 fL (7.4-10.4); Platelet Count 218 10x3/uL (130-400); RBC Distribution Width 13.3 % (11.5-14.5); Red Blood Cell (RBC) Count 3.51 mill/uL (4.20-5.40)
[2024-01-06 18:08] LABS: ALT (SGPT) 11 U/L (8-55); AST (SGOT) 21 U/L (5-34); Albumin 3.4 g/dL (3.4-4.8); Alkaline Phosphatase 106 U/L (40-110); Anion Gap 13 mmol/L (10-20); BUN (Urea Nitrogen) 20 mg/dL (9.8-20.1); Bilirubin, Total 0.3 mg/dL (0.2-1.2); Calc. Creatinine Clearance 0 mL/min (70-130); Calcium 9.2 mg/dL (7.8-10.44); Carbon Dioxide 23 mmol/L (23-31); Chloride 106 mmol/L (98-107); Estimated GFR 44; Glucose 138 mg/dL (83-110); Potassium 4.3 mmol/L (3.5-5.1); Protein, Total 7.4 g/dL (5.8-8.1); Sodium 138 mmol/L (136-145)
== END 2024-01-06 21:55 ==
LOC: ERS 16:55
DX: S22.069A Unspecified fracture of T7-T8 vertebra, initial encounter for closed fracture (principal); S22.31XA Fracture of one rib, right side, initial encounter for closed fracture; I10 Essential (primary) hypertension; E11.9 Type 2 diabetes mellitus without complications; I25.10 Atherosclerotic heart disease of native coronary artery without angina pectoris; W18.30XA Fall on same level, unspecified, initial encounter
CPT/HCPCS: 70450; 71260; 72125; 74177; 80053; 82962; 85025; 99284; Q9967; 36415; 36416

== ENCOUNTER 2024-01-31 13:56 | Outpatient (CLI) | payer MEDICARE, OTHER | END 2024-01-31 13:57 | disposition home or self-care (01) | LOC: RAD 13:56 | PROVIDERS: ATTEND Neurological Surgery | DX: S22.068D Other fracture of T7-T8 thoracic vertebra, subsequent encounter for fracture with routine healing (principal) | CPT/HCPCS: 72070 ==